=== PATIENT | female | born 1985 | race Two or more races ===

== ENCOUNTER 2021-04-15 05:36 | Inpatient (IN) | payer OTHER ==
[~2021-04-15] VITALS: Ht 157.5 cm; Wt 86.2 kg
[2021-04-15] MEDS ORDERED: PRENATAL TABLE1 EAC1 PO (06:58)
== END 2021-04-17 10:32 | disposition home or self-care (01) | DRG 807 ==
LOC: LDR 05:36 → SURG-SUITE 14:49
PROVIDERS: ADMIT Specialist; ATTEND Specialist
PROC: 10E0XZZ Delivery of Products of Conception, External Approach (ICD-10-PCS; principal; 2021-04-15)
PROC: 0W8NXZZ Division of Female Perineum, External Approach (ICD-10-PCS; 2021-04-15)
PROC: 10907ZC Drainage of Amniotic Fluid, Therapeutic from Products of Conception, Via Natural or Artificial Opening (ICD-10-PCS; 2021-04-15)
PROC: 3E033VJ Introduction of Other Hormone into Peripheral Vein, Percutaneous Approach (ICD-10-PCS; 2021-04-15)
PROC: 4A1HXFZ Monitoring of Products of Conception, Cardiac Rhythm, External Approach (ICD-10-PCS; 2021-04-15)
DX: O80 Encounter for full-term uncomplicated delivery (principal); Z37.0 Single live birth; Z3A.39 39 weeks gestation of pregnancy; Z20.822 Contact with and (suspected) exposure to COVID-19